=== PATIENT | female | born 1960 | race Caucasian/White ===

== ENCOUNTER 2020-09-23 20:41 | Emergency (ER) | payer BC, SELFPAY ==
--- NOTE | ~2020-09-23 | XR_ITS ---
EXAMINATION: XR chest 1V portable DATE: 09/23/2020 21:36 INDICATION: Right-sided chest pain, tachycardia palpitations. TECHNIQUE: frontal view of the chest was obtained. COMPARISON: None FINDINGS: Mild bibasilar opacities. No pulmonary edema, pneumothorax or definitive pleural effusion. Borderline heart size accounting for AP technique. IMPRESSION: 1. Mild bibasilar opacities and favor atelectasis over pneumonia. 2. Borderline heart size accounting for AP technique. Reviewed, dictated and finalized at location A.
[2020-09-23 20:43] VITALS: BP 136/110; RESP 20; TEMP 37.1; O2SAT 97
--- NOTE | 2020-09-23 20:49 | ECG_ITS ---
Measurements Intervals [place] Rate: P: OK: QRS: QRSD: T: QT: QTc: Interpretive Statements SUPRAVENTRICULAR TACHYCARDIA ST-T WAVE ABNORMALITY IN DIFFUSE LEADS- CONSIDER ISCHEMIA OR RATE RELATED ABNORMAL ECG Electronically Signed On 09-24-2020 8:50:05 CDT by Jamal Tenorio D.O.
--- NOTE | 2020-09-23 21:02 | ECG_ITS ---
Measurements Intervals [place] Rate: P: ME: QRS: QRSD: T: QT: QTc: Interpretive Statements SINUS TACHYCARDIA SUPRAVENTRICULAR BIGEMINY WITH CHANGE IN QRS COMPLEX TO WIDE COMPLEX BORDERLINE ST ABNORMALITY- ANTEROLAT/INF LEADS BASELINE ARTIFACT- II, III, AVF ABNORMAL ECG Electronically Signed On 09-24-2020 8:54:09 CDT by Jamal Tenorio D.O.
[2020-09-23] MEDS: SODIUM CHLORIDE 0.9% IV 1,000 ML 150 ML IV CONT (21:17)
[2020-09-23 21:27] VITALS: PULSE 121
[2020-09-23 21:37] LABS: Basophils Absolute Auto 0.09 K/mm3 (0.00-0.10); Basophils Percent Auto 0.9 % (0.0-1.0); Eosinophils Absolute Auto 0.12 K/mm3 (0.02-0.50); Eosinophils Percent Auto 1.2 % (1.0-6.0); Hematocrit 43.6 % (35.0-49.0); Hemoglobin 14.7 g/dL (12.0-15.0); Immature Granulocyte Absolute 0.05 K/mm3 (0.00-0.00); Immature Granulocyte Percent A 0.5 % (0.0-0.0); Lymphocytes Absolute Auto 2.18 K/mm3 (1.10-4.50); Lymphocytes Percent Auto 21.8 % (18.0-42.0); Mean Corpuscular HGB Conc 33.7 g/dL (32.0-36.0); Mean Corpuscular Hemoglobin 32.5 pg (27.0-31.0); Mean Corpuscular Volume 96.2 fL (78.0-102.0); Mean Platelet Volume 10.7 fl (9.2-11.8); Neutrophils Absolute Auto 6.5 K/mm3 (1.7-7.2); Neutrophils Percent Auto 64.6 % (50.0-70.0); Platelet Count Result 204 K/mm3 (150-420); Red Blood Count 4.53 M/mm3 (4.20-5.40)
[2020-09-23] MEDS: POTASSIUM BICARBONATE 25 MEQ TABEF 50 MEQ PO (21:38)
--- NOTE | 2020-09-23 21:38 | PC.NURSE ---
report to rory scherer.
[2020-09-23 21:50] VITALS: BP 168/102; PULSE 113; RESP 20; O2SAT 94
[2020-09-23 21:52] LABS: Partial Thromboplastin Time 25.1 SEC (23.90-30.70)
[2020-09-23 21:54] LABS: Alanine Aminotransferase 70 U/L (14-59); Albumin Level 3.4 g/dL (3.4-5.0); Alkaline Phosphatase 114 U/L (46-116); Anion Gap 9 mmol/L (8-16); Aspartate Amino Transferase 41 U/L (15-37); Bilirubin,Total 0.6 mg/dL (0.00-1.00); Blood Urea Nitrogen 12 mg/dL (7-18); Carbon Dioxide 29 mmol/L (21-32); Chloride 100 mmol/L (98-108); D Dimer 0.53 mg/L (0.19-0.50); Estimated CRCL calculation 63 ml/min; Estimated Glomerular Filt Rate 58; Glucose 117 mg/dL (70-99); Magnesium 1.8 mg/dL (1.8-2.4); Osmolality Calculated 286 mOsm/kg (285-295); Potassium 2.8 mmol/L (3.5-5.1); Sodium 138 mmol/L (136-145); Total Protein 8.2 g/dL (6.4-8.2); Troponin I 8.6 ng/L (0.00-60.4)
[2020-09-23] MEDS: MAGNESIUM SULF 2 GM/WATER 50ML 2 GM/50 ML BAG IVPB (22:14)
--- NOTE | 2020-09-24 01:53 | ED.ARRPALP ---
HPI - Arrhythmia/Palpitations General Chief Complaint: Arrhythmia/Palpitations Stated Complaint: heart beating fast, dizzy Time Seen by Provider: 09/23/20 21:35 Source: patient Mode of arrival: ambulatory Limitations: no limitations History of Present Illness HPI narrative: Patient presents with rapid heartbeat rate in excess of 200, and feeling anxious. This was first noticed last pm, when she was bowling. She then did ok on Saturday until about 4:30pm. She started noticing presyncopal episodes, tachycardia, and palpitations This continued off and on, and she noticed three distinct episodes where she felt she was going to faint. Which would likely be at least moderately severe presyncopal episodes. She had no diaphoresis, nausea, shortness of breath, or chest pain with these episodes. She seemed to be doing pretty well on presentation. These episodes lasted from 4:30 pm tonight until presentation here at approximately 21:30. She did get some relief from the near syncopal episodes, by putting her head down. Standing up, made the presyncopal symptoms worse. Context: She has been on HCTZ 25mg daily without any electrolyte supplement. MD complaint: rapid heart beat Onset (ago): hour(s) Duration: intermittent Severity: severe Context: occurred during rest Arrhythmia history: SVT Associated symptoms: near-syncope Related Data Home Medications Medication Instructions Recorded Confirmed ergocalciferol (vitamin D2) 1,250 mcg PO DAILY 09/23/20 09/23/20 hydrochlorothiazide 25 mg PO DAILY 09/23/20 09/23/20 Allergies Allergy/AdvReac Type Severity Reaction Status Date / Time No Known Allergies Allergy Verified 09/23/20 21:39 Review of Systems Constitutional: Constitutional: Reports no additional constitutional complaints Eyes: Eyes: Reports no additional eye complaints ENT: Reports system reviewed and no additional complaints, except as documented Cardiovascular: Cardiovascular: Reports no additional cardiovascular complaints Respiratory: Respiratory: Reports no additional respiratory complaints Gastrointestinal: Gastrointestinal: Reports no additional gastrointestinal complaints Genitourinary: Genitourinary: Reports no additional female genitourinary complaints Musculoskeletal: Musculoskeletal: Reports no additional musculoskeletal complaints Integumentary/Breasts: Skin/Breast: Reports system reviewed and no additional complaints, except as docu Neurologic: Reports system reviewed and no additional complaints, except as documented Psychiatric: Psychiatric: Reports no additional psychiatric complaints Endocrine: Endocrine: Reports no additional endocrine complaints Hematologic/Lymphatic: Hematologic/Lymphatic: Reports no additional hematologic/lymphatic complaints Allergic/Immunologic: Allergic/Immunologic: Reports no additional allergic/immunologic complaints [facility] Past Medical History Medical History (Updated 09/24/20 @ 02:39 by Justin Lobo MD) Hypertension SVT (supraventricular tachycardia) Surgical History Surgical History (Updated 09/24/20 @ 02:40 by Justin Lobo MD) H/O: hysterectomy Family History Family History (Updated 09/24/20 @ 02:44 by Justin Lobo MD) Father CHF (congestive heart failure) COPD (chronic obstructive pulmonary disease) Mother Dementia Osteoarthritis Social History Social History (Updated 09/24/20 @ 02:58 by Justin Lobo MD) Social History: Smoking status: Never smoker Alcohol intake: current Alcohol use details: drinks 0-4 alcoholic drinks per night she say Substance use: never Living arrangements: alone 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
[2020-09-24] MEDS: POTASSIUM BICARBONATE 25 MEQ TABEF 50 MEQ PO (02:09)
[2020-09-24 02:15] VITALS: BP 140/80; PULSE 105; RESP 20; O2SAT 94
== END 2020-09-24 02:27 | disposition home or self-care (01) ==
PROVIDERS: Emergency Provider Emergency Medicine; PCP Family Medicine
DX: I47.1 Supraventricular tachycardia (principal)
CPT/HCPCS: 36415; 71045; 80053; 83735; 84484; 85025; 85380; 85610; 85730; 93005; 96361; 96365; 99283; 99284; A9270; J0153; J3475; J7030